=== PATIENT | male | born 1965 | race African-American/Black ===

== ENCOUNTER 2020-08-15 13:26 | Emergency (ER) | payer OTHER ==
--- NOTE | 2020-08-15 13:57 | ER Document Report ---
ED Medical Screen (RME) - General Stated Complaint: SHORTNESS OF BREATH Time Seen by Provider: 08/15/20 13:39 - HPI Notes: Patient is a 55 y/o male with no medical hx who presents with worsening shortness of breath that began today. Patient reports chest pressure diffusely as well as productive cough, sore throat, fever and diarrhea. He denies nausea and vomiting. He was exposed to COVID at [employer] two weeks ago but has quarantined since. - Related Data Allergies/Adverse Reactions: No Known Allergies Allergy (Verified 08/15/20 13:38) Physical Exam - Vital signs Vitals: Temp Pulse Resp BP Pulse Ox 99.6 F 97 20 148/89 H 96 08/15/20 13:31 08/15/20 13:31 08/15/20 13:31 08/15/20 13:31 08/15/20 13:31 - Respiratory Respiratory status: Labored Breath sounds: Normal Course - Re-evaluation Re-evalutation: I have greeted and performed a rapid initial assessment of this patient. A comprehensive ED assessment and evaluation of the patient, analysis of test results and completion of medical decision making process will be conducted by an additional ED providers. - Vital Signs Vital signs: Temp Pulse Resp BP Pulse Ox 99.6 F 97 20 148/89 H 96 08/15/20 13:31 08/15/20 13:31 08/15/20 13:31 08/15/20 13:31 08/15/20 13:31
[2020-08-15 14:19] LABS: ABSOLUTE LYMPHOCYTES (AUTO) 0.7 10^3/uL (0.5-4.7); ABSOLUTE MONOCYTES (AUTO) 0.6 10^3/uL (0.1-1.4); ABSOLUTE NEUT (AUTO) 6.6 10^3/uL (1.7-8.2); BASOPHILS % (AUTO) 0.5 % (0-2); EOSINOPHILS % (AUTO) 0.3 % (0-6); HEMATOCRIT 40.4 % (37.9-51.0); HEMOGLOBIN 13.8 g/dL (13.5-17.0); LYMPHOCYTES % (AUTO) 8.6 % (13-45); MEAN CORPUSCULAR HEMOGLOBIN 29.7 pg (27.0-33.4); MEAN CORPUSCULAR HGB CONC 34.2 g/dL (32.0-36.0); MEAN CORPUSCULAR VOLUME 87 fl (80-97); MONOCYTES % (AUTO) 7.5 % (3-13); PLATELET COUNT 203 10^3/uL (150-450); RED BLOOD COUNT 4.65 10^6/uL (4.35-5.55); RED CELL DISTRIBUTION WIDTH 14.2 % (11.5-14.0); SEGMENTED NEUTROPHILS % (AUTO) 83.1 % (42-78); TOTAL CELLS COUNTED % (AUTO) 100 %; WHITE BLOOD COUNT 7.9 10^3/uL (4.0-10.5)
[2020-08-15 14:33] LABS: ALBUMIN 4.3 g/dL (3.5-5.0); ALKALINE PHOSPHATASE 57 U/L (38-126); ANION GAP 12 (5-19); ASPARTATE AMINO TRANSFERASE 57 U/L (17-59); BILIRUBIN,DIRECT 0.2 mg/dL (0.0-0.4); BILIRUBIN,TOTAL 0.6 mg/dL (0.2-1.3); BLOOD UREA NITROGEN 20 mg/dL (7-20); CALCIUM 9.3 mg/dL (8.4-10.2); CARBON DIOXIDE 25 mmol/L (22-30); CHLORIDE 96 mmol/L (98-107); GLUCOSE 105 mg/dL (75-110); TOTAL PROTEIN 7.7 g/dL (6.3-8.2)
--- NOTE | 2020-08-15 15:44 | ER Document Report ---
ED General - General Chief Complaint: Shortness Of Breath Stated Complaint: SHORTNESS OF BREATH Time Seen by Provider: 08/15/20 13:39 - HPI Notes: 55-year-old male presents with cough and shortness of breath. Patient states that 2 weeks ago he had a Covid exposure while at [employer], he has been quarantining at home for the past 14 days. 7 days ago he developed a cough, described as a hacking cough and productive of a thick white sputum, he is also had fatigue. He states he is overall been doing okay at home, however the donnell rtness of breath began. He complains of fever and sweats. He denies nausea, vomiting, diarrhea or abdominal pain. He denies chest pain. He is healthy, takes no medications, he is a non-smoker. He states he has been taking vitamins and other herbal supplements at home for his symptoms. - Related Data Allergies/Adverse Reactions: No Known Allergies Allergy (Verified 08/15/20 13:38) Past Medical History - General Information source: Patient - Social History Smoking Status: Former Smoker Family History: Reviewed & Not Pertinent Review of Systems - Review of Systems Constitutional: Fever EENT: Throat pain Cardiovascular: denies: Chest pain Respiratory: Cough, Short of breath Gastrointestinal: No symptoms reported Genitourinary: No symptoms reported Male Genitourinary: No symptoms reported Musculoskeletal: No symptoms reported Skin: No symptoms reported Hematologic/Lymphatic: No symptoms reported Neurological/Psychological: No symptoms reported Physical Exam - Vital signs Vitals: Temp Pulse Resp BP Pulse Ox 99.6 F 97 20 148/89 H 96 08/15/20 13:31 08/15/20 13:31 08/15/20 13:31 08/15/20 13:31 08/15/20 13:31 - General General appearance: Appears well, Alert In distress: None - HEENT Head: Normocephalic, Atraumatic Extraocular movements intact: Yes Pupils: PERRL Neck: Supple - Respiratory Respiratory status: No respiratory distress. No: Tachypnea Chest status: Nontender Breath sounds: Other - Faint rhonchi at bases - Cardiovascular Rhythm: Regular Heart sounds: Normal auscultation - Abdominal Tenderness: Nontender - Extremities General lower extremity: No: Edema - Neurological Neuro grossly intact: Yes Cognition: Normal Orientation: AAOx4 - Psychological Associated symptoms: Normal affect - Skin Skin Temperature: Warm Course - Re-evaluation Re-evalutation: 55-year-old male with fever and productive cough x7 days, new onset shortness of breath today, known Covid exposure. On exam he is alert and nontoxic-appearing, he is afebrile and 96% on room air, he does have some faint rhonchi at the bases, overall he has good air movement. I discussed with him that his symptoms are likely attributable to Covid, influenza versus other viral illness possibility as well. Possibly could have developed a secondary pneumonia given the duration of his symptoms. Swabs and chest x-ray to be obtained. We will start symptomatic control with Toradol, guaifenesin and albuterol. 08/15/20 16:43 No leukocytosis, no acute anemia. Very mild hyponatremia at 133, has been receiving fluids. Electrolytes otherwise okay. Creatinine within normal limits. No transaminitis. Troponin below reference range. Influenza and strep negative. Have reviewed chest x-ray, appears to have bilateral infiltrates, final report pending. 08/15/20 17:07 Chest x-ray report available, faint patchy bilateral airspace disease concerning for possible viral pneumonia Patient reported improvement in his symptoms. He was updated on to the results of his chest x-ray. He was given albuterol MDI to take home with him. Strict return precautions discussed, stable at time of discharge. - Vital Signs Vital signs: Temp Pulse Resp BP Pulse Ox 99.6 F 97 20 148/89 H 96 08/15/20 13:31 08/15/20 13:31 08/15/20 13:31 08/15/20 13:31 08/15/20 13:31 - Laboratory Result Diagrams: 08/15/20 13:45 08/15/20 13:45 Laboratory results interpreted by me: 08/15/20 08/15/20 08/15/20 13:45 13:45 16:40 RDW 14.2 H Lymph % (Auto) 8.6 L Seg Neutrophils % 83.1 H Sodium 133.2 L Chloride 96 L Urine Protein >=500 H Urine Ascorbic Acid 40 H - Diagnostic Test Radiology reviewed: Image reviewed, Reports reviewed - EKG Interpretation by Me Additional EKG results interpreted by me: EKG is interpreted by me. Sinus rhythm, rate 96. Narrow QRS, QTC within normal limits. No ST segment elevation or depressions. No previous EKG available for comparison. Discharge - Discharge Clinical Impression: Person under investigation for COVID-19 Bilateral pneumonia Qualifiers: Pneumonia type: due to unspecified organism Lung location: lower lobe of lung Qualified Code(s): J18.9 - Pneumonia, unspecified organism Disposition: HOME, SELF-CARE Additional Instructions: As discussed, your Covid swab should result on average of 3 days. Please continue quarantine at home. Please begin Z-Ti as directed. Return to the emergency department for any concerning worsening symptoms. Prescriptions: Azithromycin 250 mg PO ASDIR PRN 5 Days #6 tablet PRN Reason:
[2020-08-15] MEDS ORDERED: KETOROLAC TROMETHAMINE INJ/PF 30 MG/1 ML SDV IV ONE (15:52)
[2020-08-15] MEDS ORDERED: GUAIFENESIN 600 MG TABLET.SA PO ONE (15:53)
[2020-08-15] MEDS ORDERED: RINGERS SOLUTION,LACTATED 1,000 ML IV ONE (15:53)
[2020-08-15] MEDS ORDERED: ALBUTEROL SULFATE HFA (90 MCG/PUFF) 8 GM MDI (1 MDI/ER DISP) IH ONE (15:55)
[2020-08-15 16:10] LABS: A TYPE INFLUENZA AG NEGATIVE (NEGATIVE); B INFLUENZA AG NEGATIVE (NEGATIVE)
[2020-08-15 16:57] LABS: APPEARANCE,URINE SLIGHTLY-CLOUDY; BILIRUBIN,URINE NEGATIVE (NEGATIVE); COLOR,URINE YELLOW; GLUCOSE, URINE NEGATIVE (NEGATIVE); KETONES,URINE NEGATIVE (NEGATIVE); LEUKOCYTE ESTERASE,URINE NEGATIVE (NEGATIVE); NITRITE,URINE NEGATIVE (NEGATIVE); PROTEIN,URINE >=500 mg/dL (NEGATIVE); URINE SPECIFIC GRAVITY 1.023; UROBILINOGEN,URINE NEGATIVE mg/dL (<2.0)
--- NOTE | 2020-08-15 17:00 | RADIOLOGY REPORT (SQ) ---
EXAM DESCRIPTION: CHEST SINGLE VIEW IMAGES COMPLETED DATE/TIME: 08/15/2020 4:25 pm REASON FOR STUDY: shortness of breath COMPARISON: None. EXAM PARAMETERS: NUMBER OF VIEWS: One view. TECHNIQUE: Single frontal radiographic view of the chest acquired. RADIATION DOSE: NA LIMITATIONS: None. FINDINGS: LUNGS AND PLEURA: Faint patchy bilateral airspace disease. MEDIASTINUM AND HILAR STRUCTURES: No masses. Contour normal. HEART AND VASCULAR STRUCTURES: Heart upper limits of normal in size. Normal vasculature. BONES: No acute findings. Degenerative changes in the spine. HARDWARE: None in the chest. OTHER: No other significant finding. IMPRESSION: FAINT PATCHY BILATERAL AIRSPACE DISEASE CONCERNING FOR POSSIBLE VIRAL PNEUMONIA. TECHNICAL DOCUMENTATION: JOB ID: [id number] 2010 [employer]- All Rights Reserved Reading location - IP/workstation name: [email or web address]
--- NOTE | 2020-08-15 19:44 | EKG REPORT ---
SEVERITY:- ABNORMAL ECG - SINUS RHYTHM LEFT AXIS DEVIATION LEFT VENTRICULAR HYPERTROPHY : Confirmed by: Aurea Bolton MD 15-Aug-2020 19:43:43
[2020-08-15 20:35] VITALS: BP 133/72
== END 2020-08-15 20:35 | disposition home or self-care (01) ==
LOC: ER 13:26
DX: U07.1 COVID-19 (principal); J18.9 Pneumonia, unspecified organism; R06.02 Shortness of breath; R19.7 Diarrhea, unspecified
CPT/HCPCS: 93005; 99285; 96361; 96374; 36415; 87070; 87880; 85025; 87635; 80053; 81001; 84484; 87804; 71045; 93010; J1885; J7120; J3490; C9803